=== PATIENT | male | born 1945 | race Caucasian/White ===

== ENCOUNTER 2020-12-02 09:27 | Outpatient (REF) | payer MEDICARE, OTHER, SELFPAY | END 2020-12-02 09:28 | disposition home or self-care (01) | LOC: HO.MDS 09:27 | PROVIDERS: PCP Internal Medicine; Visit Provider Psychiatry & Neurology Neurology | DX: G61.81 Chronic inflammatory demyelinating polyneuritis (principal) | CPT/HCPCS: 96365; 96366; J1572 ==

== ENCOUNTER 2020-12-03 08:45 | Outpatient (REF) | payer MEDICARE, OTHER, SELFPAY | END 2020-12-03 08:46 | disposition home or self-care (01) | LOC: HO.MDS 08:45 | PROVIDERS: PCP Internal Medicine; Visit Provider Psychiatry & Neurology Neurology | DX: G61.81 Chronic inflammatory demyelinating polyneuritis (principal) | CPT/HCPCS: 96365; 96366; J1572 ==

== ENCOUNTER 2020-12-04 08:45 | Outpatient (REF) | payer MEDICARE, OTHER, SELFPAY | END 2020-12-04 08:46 | disposition home or self-care (01) | LOC: HO.MDS 08:45 | PROVIDERS: PCP Internal Medicine; Visit Provider Psychiatry & Neurology Neurology | DX: G61.81 Chronic inflammatory demyelinating polyneuritis (principal) | CPT/HCPCS: 96365; 96366; J1572 ==

== ENCOUNTER 2020-12-05 08:54 | Outpatient (REF) | payer MEDICARE, OTHER, SELFPAY | END 2020-12-05 08:55 | disposition home or self-care (01) | LOC: HO.MDS 08:54 | PROVIDERS: PCP Internal Medicine; Visit Provider Psychiatry & Neurology Neurology | DX: G61.81 Chronic inflammatory demyelinating polyneuritis (principal) | CPT/HCPCS: 96365; 96366; J1572 ==

== ENCOUNTER 2020-12-06 08:38 | Outpatient (REF) | payer MEDICARE, OTHER, SELFPAY | END 2020-12-06 08:39 | disposition home or self-care (01) | LOC: HO.MDS 08:38 | PROVIDERS: Visit Provider Psychiatry & Neurology Neurology | DX: G61.81 Chronic inflammatory demyelinating polyneuritis (principal) | CPT/HCPCS: 96365; 96366; J1572 ==

== ENCOUNTER 2021-06-09 09:07 | Outpatient (REF) | payer MEDICARE, OTHER, SELFPAY | END 2021-06-09 09:08 | disposition home or self-care (01) | LOC: HO.MDS 09:07 | PROVIDERS: PCP Internal Medicine; Visit Provider Psychiatry & Neurology Neurology | DX: G61.81 Chronic inflammatory demyelinating polyneuritis (principal) | CPT/HCPCS: 96365; 96366; J1572 ==

== ENCOUNTER 2021-06-10 08:57 | Outpatient (REF) | payer MEDICARE, OTHER, SELFPAY | END 2021-06-10 08:58 | disposition home or self-care (01) | LOC: HO.MDS 08:57 | PROVIDERS: PCP Internal Medicine; Visit Provider Psychiatry & Neurology Neurology | DX: G61.81 Chronic inflammatory demyelinating polyneuritis (principal) | CPT/HCPCS: 96365; 96366; J1572 ==

== ENCOUNTER 2021-06-11 08:54 | Outpatient (REF) | payer MEDICARE, OTHER, SELFPAY | END 2021-06-11 08:55 | disposition home or self-care (01) | LOC: HO.MDS 08:54 | PROVIDERS: PCP Internal Medicine; Visit Provider Psychiatry & Neurology Neurology | DX: G61.81 Chronic inflammatory demyelinating polyneuritis (principal) | CPT/HCPCS: 96365; 96366; J1572 ==

== ENCOUNTER 2021-06-12 08:52 | Outpatient (REF) | payer MEDICARE, OTHER, SELFPAY | END 2021-06-12 08:53 | disposition home or self-care (01) | LOC: HO.MDS 08:52 | PROVIDERS: PCP Internal Medicine; Visit Provider Psychiatry & Neurology Neurology | DX: G61.81 Chronic inflammatory demyelinating polyneuritis (principal) | CPT/HCPCS: 96365; 96366; J1572 ==

== ENCOUNTER 2021-06-13 08:55 | Outpatient (REF) | payer MEDICARE, OTHER, SELFPAY | END 2021-06-13 08:56 | disposition home or self-care (01) | LOC: HO.MDS 08:55 | PROVIDERS: PCP Internal Medicine; Visit Provider Psychiatry & Neurology Neurology | DX: G61.81 Chronic inflammatory demyelinating polyneuritis (principal) | CPT/HCPCS: 96365; 96366; J1572 ==

== ENCOUNTER 2021-12-08 08:44 | Outpatient (REF) | payer MEDICARE, OTHER, SELFPAY | END 2021-12-08 08:45 | disposition home or self-care (01) | LOC: HO.MDS 08:44 | PROVIDERS: PCP Internal Medicine; Visit Provider Psychiatry & Neurology Neurology | DX: G61.81 Chronic inflammatory demyelinating polyneuritis (principal) | CPT/HCPCS: 96365; 96366; J1569; J1572 ==

== ENCOUNTER 2021-12-09 08:46 | Outpatient (REF) | payer MEDICARE, OTHER, SELFPAY | END 2021-12-09 08:47 | disposition home or self-care (01) | LOC: HO.MDS 08:46 | PROVIDERS: PCP Internal Medicine; Visit Provider Psychiatry & Neurology Neurology | DX: G61.81 Chronic inflammatory demyelinating polyneuritis (principal) | CPT/HCPCS: 96365; 96366; J1569 ==

== ENCOUNTER 2021-12-10 08:48 | Outpatient (REF) | payer MEDICARE, OTHER, SELFPAY | END 2021-12-10 08:49 | disposition home or self-care (01) | LOC: HO.MDS 08:48 | PROVIDERS: PCP Internal Medicine; Visit Provider Psychiatry & Neurology Neurology | DX: G61.81 Chronic inflammatory demyelinating polyneuritis (principal) | CPT/HCPCS: 96365; 96366; J1569 ==

== ENCOUNTER 2021-12-11 08:44 | Outpatient (REF) | payer MEDICARE, OTHER, SELFPAY | END 2021-12-11 08:45 | disposition home or self-care (01) | LOC: HO.MDS 08:44 | PROVIDERS: PCP Internal Medicine; Visit Provider Psychiatry & Neurology Neurology | DX: G61.81 Chronic inflammatory demyelinating polyneuritis (principal) | CPT/HCPCS: 96365; 96366; J1569 ==

== ENCOUNTER 2021-12-12 08:46 | Outpatient (REF) | payer MEDICARE, OTHER, SELFPAY | END 2021-12-12 08:47 | disposition home or self-care (01) | LOC: HO.MDS 08:46 | PROVIDERS: PCP Internal Medicine; Visit Provider Psychiatry & Neurology Neurology | DX: G61.81 Chronic inflammatory demyelinating polyneuritis (principal) | CPT/HCPCS: 96365; 96366; J1569 ==

== ENCOUNTER 2022-06-01 09:02 | Outpatient (REF) | payer MEDICARE, OTHER, SELFPAY | END 2022-06-01 09:03 | disposition home or self-care (01) | LOC: HO.MDS 09:02 | PROVIDERS: PCP Physician Assistant Medical; Visit Provider Psychiatry & Neurology Neurology | DX: G61.81 Chronic inflammatory demyelinating polyneuritis (principal) | CPT/HCPCS: 96365; 96366; J1569 ==

== ENCOUNTER 2022-06-02 08:51 | Outpatient (REF) | payer MEDICARE, OTHER, SELFPAY | END 2022-06-02 08:52 | disposition home or self-care (01) | LOC: HO.MDS 08:51 | PROVIDERS: PCP Physician Assistant Medical; Visit Provider Psychiatry & Neurology Neurology | DX: G61.81 Chronic inflammatory demyelinating polyneuritis (principal) | CPT/HCPCS: 96365; 96366; J1569 ==

== ENCOUNTER 2022-06-03 08:50 | Outpatient (REF) | payer MEDICARE, OTHER, SELFPAY | END 2022-06-03 08:51 | disposition home or self-care (01) | LOC: HO.MDS 08:50 | PROVIDERS: PCP Physician Assistant Medical; Visit Provider Psychiatry & Neurology Neurology | DX: G61.81 Chronic inflammatory demyelinating polyneuritis (principal) | CPT/HCPCS: 96365; 96366; J1569 ==

== ENCOUNTER 2022-06-05 08:45 | Outpatient (REF) | payer MEDICARE, OTHER, SELFPAY | END 2022-06-05 08:46 | disposition home or self-care (01) | LOC: HO.MDS 08:45 | PROVIDERS: PCP Physician Assistant Medical; Visit Provider Psychiatry & Neurology Neurology | DX: G61.81 Chronic inflammatory demyelinating polyneuritis (principal) | CPT/HCPCS: 96365; 96366; J1569 ==

== ENCOUNTER 2022-06-15 09:50 | Outpatient (REF) | payer MEDICARE, OTHER, SELFPAY | END 2022-06-15 09:51 | disposition home or self-care (01) | LOC: HO.MDS 09:50 | PROVIDERS: PCP Physician Assistant Medical; Visit Provider Psychiatry & Neurology Neurology | DX: G61.81 Chronic inflammatory demyelinating polyneuritis (principal) | CPT/HCPCS: 96365; 96366; J1569 ==

== ENCOUNTER 2022-12-14 08:49 | Outpatient (REF) | payer MEDICARE, OTHER, SELFPAY | END 2022-12-14 08:50 | disposition home or self-care (01) | LOC: HO.MDS 08:49 | PROVIDERS: Visit Provider Psychiatry & Neurology Neurology | DX: G61.81 Chronic inflammatory demyelinating polyneuritis (principal) | CPT/HCPCS: 96365; 96366; J1569 ==

== ENCOUNTER 2022-12-15 08:41 | Outpatient (REF) | payer MEDICARE, OTHER, SELFPAY | END 2022-12-15 08:42 | disposition home or self-care (01) | LOC: HO.MDS 08:41 | PROVIDERS: Visit Provider Psychiatry & Neurology Neurology | DX: G61.81 Chronic inflammatory demyelinating polyneuritis (principal) | CPT/HCPCS: 96365; 96366; J1569 ==

== ENCOUNTER 2022-12-16 08:36 | Outpatient (REF) | payer MEDICARE, OTHER, SELFPAY | END 2022-12-16 08:37 | disposition home or self-care (01) | LOC: HO.MDS 08:36 | PROVIDERS: Visit Provider Psychiatry & Neurology Neurology | DX: G61.81 Chronic inflammatory demyelinating polyneuritis (principal) | CPT/HCPCS: 96365; J1569 ==

== ENCOUNTER 2022-12-17 08:39 | Outpatient (REF) | payer MEDICARE, OTHER, SELFPAY | END 2022-12-17 08:40 | disposition home or self-care (01) | LOC: HO.MDS 08:39 | PROVIDERS: Visit Provider Psychiatry & Neurology Neurology | DX: G61.81 Chronic inflammatory demyelinating polyneuritis (principal) | CPT/HCPCS: 96365; 96366; J1569 ==

== ENCOUNTER 2022-12-18 08:44 | Outpatient (REF) | payer MEDICARE, OTHER, SELFPAY | END 2022-12-18 08:45 | disposition home or self-care (01) | LOC: HO.MDS 08:44 | PROVIDERS: Visit Provider Psychiatry & Neurology Neurology | DX: G61.81 Chronic inflammatory demyelinating polyneuritis (principal) | CPT/HCPCS: 96365; 96366; J1569 ==

== ENCOUNTER 2023-06-14 08:58 | Outpatient (REF) | payer MEDICARE, OTHER, SELFPAY | END 2023-06-14 08:59 | disposition home or self-care (01) | LOC: HO.MDS 08:58 | PROVIDERS: Visit Provider Psychiatry & Neurology Neurology | DX: G61.81 Chronic inflammatory demyelinating polyneuritis (principal) | CPT/HCPCS: 96365; 96366; J1569 ==

== ENCOUNTER 2023-06-15 08:43 | Outpatient (REF) | payer MEDICARE, OTHER, SELFPAY | END 2023-06-15 08:44 | disposition home or self-care (01) | LOC: HO.MDS 08:43 | PROVIDERS: Visit Provider Psychiatry & Neurology Neurology | DX: G61.81 Chronic inflammatory demyelinating polyneuritis (principal) | CPT/HCPCS: 96365; 96366; J1569 ==

== ENCOUNTER 2023-06-16 08:46 | Outpatient (REF) | payer MEDICARE, OTHER, SELFPAY | END 2023-06-16 08:47 | disposition home or self-care (01) | LOC: HO.MDS 08:46 | PROVIDERS: Visit Provider Psychiatry & Neurology Neurology | DX: G61.81 Chronic inflammatory demyelinating polyneuritis (principal) | CPT/HCPCS: 96365; 96366; J1569 ==

== ENCOUNTER 2023-06-17 08:45 | Outpatient (REF) | payer MEDICARE, OTHER, SELFPAY | END 2023-06-17 08:46 | disposition home or self-care (01) | LOC: HO.MDS 08:45 | PROVIDERS: Visit Provider Psychiatry & Neurology Neurology | DX: G61.81 Chronic inflammatory demyelinating polyneuritis (principal) | CPT/HCPCS: 96365; 96366; J1569 ==

== ENCOUNTER 2023-06-18 08:47 | Outpatient (REF) | payer MEDICARE, OTHER, SELFPAY | END 2023-06-18 08:48 | disposition home or self-care (01) | LOC: HO.MDS 08:47 | PROVIDERS: Visit Provider Psychiatry & Neurology Neurology | DX: G61.81 Chronic inflammatory demyelinating polyneuritis (principal) | CPT/HCPCS: 96365; 96366; J1569 ==

== ENCOUNTER 2023-11-01 08:57 | Outpatient (REF) | payer MEDICARE, OTHER, SELFPAY | END 2023-11-01 08:58 | disposition home or self-care (01) | LOC: HO.MDS 08:57 | PROVIDERS: Visit Provider Psychiatry & Neurology Neurology | DX: G61.81 Chronic inflammatory demyelinating polyneuritis (principal) | CPT/HCPCS: 96365; 96366; J1569 ==

== ENCOUNTER 2023-11-02 08:56 | Outpatient (REF) | payer MEDICARE, OTHER, SELFPAY | END 2023-11-02 08:57 | disposition home or self-care (01) | LOC: HO.MDS 08:56 | PROVIDERS: PCP Physician Assistant Medical; Visit Provider Psychiatry & Neurology Neurology | DX: G61.81 Chronic inflammatory demyelinating polyneuritis (principal) | CPT/HCPCS: 96365; 96366; J1569 ==

== ENCOUNTER 2023-11-03 08:44 | Outpatient (REF) | payer MEDICARE, OTHER, SELFPAY | END 2023-11-03 08:45 | disposition home or self-care (01) | LOC: HO.MDS 08:44 | PROVIDERS: Visit Provider Psychiatry & Neurology Neurology | DX: G61.81 Chronic inflammatory demyelinating polyneuritis (principal) | CPT/HCPCS: 96365; 96366; J1569 ==

== ENCOUNTER 2023-11-04 08:47 | Outpatient (REF) | payer MEDICARE, OTHER, SELFPAY | END 2023-11-04 08:48 | disposition home or self-care (01) | LOC: HO.MDS 08:47 | PROVIDERS: Visit Provider Psychiatry & Neurology Neurology | DX: G61.81 Chronic inflammatory demyelinating polyneuritis (principal) | CPT/HCPCS: 96365; 96366; J1569 ==

== ENCOUNTER 2023-11-05 08:47 | Outpatient (REF) | payer MEDICARE, OTHER, SELFPAY | END 2023-11-05 08:48 | disposition home or self-care (01) | LOC: HO.MDS 08:47 | PROVIDERS: PCP Physician Assistant Medical; Visit Provider Psychiatry & Neurology Neurology | DX: G61.81 Chronic inflammatory demyelinating polyneuritis (principal) | CPT/HCPCS: 96365; 96366; J1569 ==

== ENCOUNTER 2024-01-31 08:54 | Outpatient (REF) | payer MEDICARE, OTHER, SELFPAY ==
[2024-01-31] VITALS (8 sets, daily range): BP systolic 96–117; BP diastolic 48–64; PULSE 55–69; RESP 18–118; TEMP 36.8; O2SAT 96; BMI 32.6
[2024-01-31] MEDS: Immun Glob G(IgG)/Gly/IGA Ov50 200 ML IV ×2 (09:30→11:00)
== END 2024-01-31 08:55 | disposition home or self-care (01) ==
LOC: HO.MDS 08:54
PROVIDERS: Visit Provider Psychiatry & Neurology Neurology
DX: G61.81 Chronic inflammatory demyelinating polyneuritis (principal)
CPT/HCPCS: 96365; 96366; J1569

== ENCOUNTER 2024-02-01 08:46 | Outpatient (REF) | payer MEDICARE, OTHER, SELFPAY ==
[2024-02-01] VITALS (8 sets, daily range): BP systolic 116–134; BP diastolic 62–77; PULSE 57–66; RESP 16–18; TEMP 36; O2SAT 96–97
[2024-02-01] MEDS: Immun Glob G(IgG)/Gly/IGA Ov50 200 ML IV ×2 (09:26→10:56)
== END 2024-02-01 08:47 | disposition home or self-care (01) ==
LOC: HO.MDS 08:46
PROVIDERS: Visit Provider Psychiatry & Neurology Neurology
DX: G61.81 Chronic inflammatory demyelinating polyneuritis (principal)
CPT/HCPCS: 96365; 96366; J1569

== ENCOUNTER 2024-02-02 08:41 | Outpatient (REF) | payer MEDICARE, OTHER, SELFPAY ==
[2024-02-02] VITALS (8 sets, daily range): BP systolic 107–144; BP diastolic 54–75; PULSE 59–72; RESP 16–20; TEMP 36.5; O2SAT 98
[2024-02-02] MEDS: Immun Glob G(IgG)/Gly/IGA Ov50 200 ML IV ×2 (09:00→10:30)
== END 2024-02-02 08:42 | disposition home or self-care (01) ==
LOC: HO.MDS 08:41
PROVIDERS: Visit Provider Psychiatry & Neurology Neurology
DX: G61.81 Chronic inflammatory demyelinating polyneuritis (principal)
CPT/HCPCS: 96365; 96366; J1569

== ENCOUNTER 2024-02-03 08:32 | Outpatient (REF) | payer MEDICARE, OTHER, SELFPAY ==
[2024-02-03] VITALS (8 sets, daily range): BP systolic 120–141; BP diastolic 54–74; PULSE 54–67; RESP 20; TEMP 36.6; O2SAT 96
[2024-02-03] MEDS: Immun Glob G(IgG)/Gly/IGA Ov50 200 ML IV ×2 (09:00→10:27)
== END 2024-02-03 08:33 | disposition home or self-care (01) ==
LOC: HO.MDS 08:32
PROVIDERS: Visit Provider Psychiatry & Neurology Neurology
DX: G61.81 Chronic inflammatory demyelinating polyneuritis (principal)
CPT/HCPCS: 96365; 96366; J1569

== ENCOUNTER 2024-02-04 08:37 | Outpatient (REF) | payer MEDICARE, OTHER, SELFPAY ==
[2024-02-04] VITALS (8 sets, daily range): BP systolic 120–151; BP diastolic 64–78; PULSE 55–66; RESP 16–20; TEMP 36.6; O2SAT 96
[2024-02-04] MEDS: Immun Glob G(IgG)/Gly/IGA Ov50 200 ML IV ×2 (08:50→10:15)
== END 2024-02-04 08:38 | disposition home or self-care (01) ==
LOC: HO.MDS 08:37
PROVIDERS: Visit Provider Psychiatry & Neurology Neurology
DX: G61.81 Chronic inflammatory demyelinating polyneuritis (principal)
CPT/HCPCS: 96365; 96366; J1569

== ENCOUNTER 2025-07-18 11:25 | Outpatient (AMB) | payer MEDICARE, OTHER, SELFPAY ==
--- NOTE | 2025-07-18 11:39 | A.OFFVIS_ITS ---
Intake Visit Reasons: 3 Months/ CIDP Allergies No Known Allergies (No Known Allergies*) Allergy (Unverified 08/08/20 19:11) HPI Comments Details: 79 y/o man with h/o aortic valve replacement and chronic inflammotory demylinating polyradiculoneuropathy, and RLS. CIDP is treated with prednisone and ivIg every 3 months. He got worse with prednisone 2.5mg and was stable on higher dose. He is presenting with worsening leg weakness characterized by a decrease in leg strength, affecting balance and mobility over the past two to three months. There is noted nocturnal swelling of the left leg associated with brace wear, resolving by morning. The patient has been on a maintenance dose of 7.5 mg prednisone since April due to past unsuccessful tapering attempts that exacerbated his leg weakness, significantly impacting his walking ability. Prednisone dose reductions to 5 mg and 2.5 mg in the past led to severe mobility issues. IVIG treatments generally contribute to mild improvement in ambulation; however, the last treatment did not afford the usual benefit. The patient also experiences difficulty ambulating due to a disintegrating bone in the left foot, further complicating the clinical picture. 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 - Cardiovascular: Denies significant lower extremity swelling during the day; minimal swelling noted at night, which resolves by morning. - General: Reports no significant improvement despite recent IVIG treatment. Assessment & Plan Assessment & Plan (1) CIDP (chronic inflammatory demyelinating polyneuropathy): Comment: CSF analysis at [facility] in Nov 2016: OP: 6.5cm, RBCs 9275, WBCs 9, 46% L, 42% N, Glu 48, Pro 129.3, IgG ind: ok, OCBs >5 bands also in serum but some are more pronounced in CSF Labs at [facility] in Sep 2016: LORI ok, Lyme ok, IF ok, Sed rate 60. 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 XR ankle at in Jul 2016: mild DJD MRI LS spine at [facility] in Nov 2016: mod DJD, mod anterolisthesis S1/L5. Code(s): G6.81 - Chronic inflammatory demyelinating polyneuritis Category: Medical Plan: During today's consultation, I discussed the progression of the patient's leg weakness, emphasizing maintaining the current prednisone regimen due to previous adverse reactions to dose reductions. I explored future treatment options, including biological drugs like Rituximab, Vyvgart, and alternatives depending on subsequent nerve conduction study results. Addressing IVIG as a current supportive treatment modality was also emphasized, despite its limited efficacy in this recent session. We also reviewed the implications of the disintegrating foot bone on mobility and potential adjustments to the brace or need for further podiatric interventions. I discussed the importance of scheduling nerve tests and the potential for new medication regimens contingent on results and insurance considerations. (2) RLS (restless legs syndrome): Code(s): G2.81 - Restless legs syndrome Category: Medical Plan Impression: a: CIDP b: Multifactorial gait disorder (neuropathy, obesity, left foot osteopathy) c: RLS Rec: a: Prednisone 2.5mg, 3 a day b: IVIg 40g for 5 days every 3 months c: EMG/NCS R arm and leg to grade present level of neuropathy d: Regular use of walker e: May consider biological drug depending EMG/NCS findings Orders: Orders NE nerve conduction velocity Today - Chronic inflammatory demyelinating polyneuritis NE electromyogram (EMG) Today - Chronic inflammatory demyelinating polyneuritis Medications: New prednisone 7.5 mg (3 x 2.5 mg) PO DAILY 270 tabs 0RF 90 days Refilled gabapentin 300 mg PO BEDTIME 90 caps 0RF Coding Level of Care Code Est Pt Level 5 (92243) Diagnoses CIDP (chronic inflammatory demyelinating polyneuropathy) RLS (restless legs syndrome)
--- OUTSIDE RECORDS SUMMARY | 2025-07-18 12:22 | XMS_ITS | Patient Health Record ---
[facility] Address [address] [place] [address] Care Team Providers Care Radio Recorder Name Role Phone Rj Benitez MD Primary Care Provider Anca Garcia Unavailable [phone] Reason For Referral No Information Medications Medication SIG (Take, Route, Frequency, Duration) Notes Start Date End Date Status Viagra 100 MG 1 tablet as needed O rally Once a day; Duration: 30 day(s) Active Indomethacin 25 MG 1 capsule with food Orally Twice a day; Duration: 30 day(s) Active Lisinopril 40 MG 1 tablet Orally Once a day; Duration: 30 day(s) Active amLODIPine Besylate 5 MG 1 tablet Orally Once a day; Duration: 30 day(s) Active Pravastatin Sodium 80 MG 1 tablet Orally Once a day; Duration: 30 day(s) Active Aspirin 81 MG 1 tablet Orally Once a day; Duration: 30 day(s) Active Piroxicam 20 MG 1 capsule with food Orally Once a day; Duration: 30 day(s) Active Ankle Brace/High Performance S as directed 06/27/2013 Active Problems Problem Type SNOMED Code ICD Code Onset Dates Problem Status W/U Status Risk Notes Problem Arthralgia (16999051) Arthralgia (719.40) Active confirmed Problem Disorder of joint of ankle and/or foot (299006229) Arthritis - Degenerative (719.97) Active confirmed Problem Pain in limb (52969545) Pain in Limb (729.5) Active confirmed Problem Acquired deformity of ankle AND/OR foot (97347920) Drop foot (736.79) Active confirmed Plan Of Treatment Pending Test Test Name Order Date [id number] NAIL, 1-08/29/2013 [id number] NAIL, -11/28/2013 Insurance Providers Payer Name Payer Address Payer Phone Subscriber Number Group Number Insured Name Patient Relationship to Insured Coverage Start Date Coverage End Date [address] [place] [address] [id number] Joshua Mackey Self - patient is the insured Medical (General) History Medical History History ICD Code hypertension
--- OUTSIDE RECORDS SUMMARY | 2025-07-18 12:22 | XMS_ITS | Clinical Summary ---
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 Active hydrocortisone 2.5 % ointment 10/26/20 23 Active amoxicillin (AMOXIL) 500 mg capsule TAKE 4 CAPSULES BY MOUTH 1 HOUR BEFORE DENTAL APPOINTMENT 10/18/20 23 Active traMADoL (ULTRAM) 50 mg tablet Take 1 Tablet by mouth every 6 hours as needed for Pain. 11/17/20 23 Active triamcinolone (KENALOG) 0.1 % lotion Apply to affected areas twice daily as needed sparingly 11/17/20 23 Active latanoprost (XALATAN) 0.005 % ophthalmic solution INSTILL 1 DROP IN BOTH EYES AT BEDTIME 02/27/20 23 Active CHOLECALCIFEROL, VITAMIN D3, ORAL Take 500 mg by mouth daily. Active calcium carbonate (CALCIUM 600 ORAL) Take 600 mg by mouth daily. Active sildenafiL (VIAGRA) 100 mg tablet 01/09/20 19 Active gabapentin (NEURONTIN) 300 mg capsule Take 300 mg by mouth daily. Active omeprazole (PriLOSEC) [address] capsule TAKE 1 CAPSULE BY MOUTH DAILY 90 capsule 3 10/25/20 24 Active pravastatin (PRAVACHOL) 80 mg tablet TAKE 1 TABLET BY MOUTH DAILY 90 tablet 3 12/06/19 25 Active warfarin (COUMADIN) 5 mg tablet TAKE 1 TO 2 TABLETS BY MOUTH EVERY DAY 180 tablet 1 12/22/19 25 Active Additional Information Patient taking differently:oral Daily,5 days 5 mg and 7.5mg 2 other days, Reported on 06/18/2025 Arexvy, PF, 120 mcg/0.5 mL suspension for reconstitution 09/19/20 24 Active predniSONE (DELTASONE) 5 mg tablet Take 1 tablet (5 mg total) by mouth 1 (one) time each day. Total 7.5mg 12/23/19 25 Active predniSONE (DELTASONE) 2.5 mg tablet Take 1 tablet (2.5 mg total) by mouth 1 (one) time each day. Total 7.5mg daily 12/25/19 25 Active ferrous sulfate 325 mg (65 mg iron) EC tablet Take 1 tablet (325 mg total) by mouth 1 (one) time each day with breakfast. Do not crush, chew, or split. 02/24/20 25 Active sacubitriL-valsart an (ENTRESTO) 24-26 mg per tablet Take 1 tablet by mouth 2 (two) times a day. 180 each 3 04/04/20 25 026 Active carvediloL (COREG) 12.5 mg tablet Take 1 tablet (12.5 mg total) by mouth 2 (two) times a day with meals. 180 each 3 05/15/20 25 Active polyethylene glycol (Golytely) 236-22.74-6.74 -5.86 gram solution Take 4L by mouth once for one dose. May substitue any PEG. Starting at 2PM the day before your procedure drink 1 8oz glasses at your own pace until you complete half of the gallon. Finish 2nd half of the gallon at 8PM. 4000 mL 06/18/20 25 Active bisacodyL (DULCOLAX) 5 mg EC tablet Take 2 tablets by mouth right before beginning bowel prep. See instructions provided by the office 2 tablet 06/18/20 25 Active docusate sodium (COLACE) 100 mg capsule Take 1 capsule (100 mg total) by mouth 2 (two) times a day. Active betamethasone dipropionate (DIPROSONE) 0.05 % cream 04/04/20 25 Active immune globulin,gamma,IgG , (IMMUNE GLOBULIN, HUMAN,, IGG, IV) Infuse into a venous catheter every 3 (three) months. Active Active Problems Problem Noted Date Diagnosed Date Cardiomyopathy, nonischemic ([facility] V24, [facility]/ C V28) 04/04/2025 half-way (current) use of anticoagulants 2023 Personal history of DVT (deep vein thrombosis) 1 12/13/2023 Anemia 08/29/2024 Carpal tunnel syndrome on right 05/29/2024 Left carpal tunnel syndrome 05/29/2024 Edema of both lower extremit ies due to peripheral venous insufficiency 03/20/2024 Overview (08/29/2024): Last Assessment & Plan: Centrally euvolemic with dependent edema-likely related to multiple factors including venous insufficiency, chronic dependent state of his legs, peripheral muscle wasting. Recommended elevation of legs while supine is much as possible. I did offer to start him on an as needed diuretic. He would like to hold off but will let me know if things start to worsen. OAB (overactive bladder) 11/17/2023 Basal cell carcinoma (BCC) of neck 05/07/2023 Iron deficiency anemia due to chronic blood loss 12/25/2021 MR (mitral regurgitation) 06/06/2018 Overview (08/29/2024): -Unfortunately I am unable to view the echocardiographic images of his previous to echocardiograms but I description, it is noted that he was described as having moderate to severe mitral regurgitation on his echo in 2018 which subsequently improved to mild to moderate in 2019 -In the past several years, it has been moderate and eccentric-see most recent echo under aortic stenosis section Last Assessment & Plan: No more than moderate by exam today. Continue yearly surveillance echoes. mainly for this purpose DVT (deep venous thrombosis) ([facility] V24, [facility]/ [facility] V28) 09/28/2017 Left foot drop 02/10/2017 CIDP (chronic inflammatory d emyelinating polyneuropathy) ([facility] V24, [facility] V28) 01/30/2017 Overview (08/29/2024): receiving IVIG from under Dr. Macias Aortic stenosis 12/23/2012 Overview (08/29/2024): -Status post bioprosthetic aortic valve replacement for severe aortic stenosis that was symptomatic in nature in March 2016 -Preoperative cardiac cath showed minor luminal irregularities of the coronaries -Most recent echocardiogram on 01/21/2024 showed upper normal left ventricular cavity size and upper normal wall thickness, low normal systolic function with normal regional wall motion and an ejection fraction of 50 to 55%, paradoxic septal motion in keeping with prior cardiac surgery, grade 2 diastolic dysfunction consistent with increased left atrial pressure, evidence of increased LVEDP, normal RV size and systolic function, bioprosthetic aortic valve replacement-valve is well-seated with physiologic performance and no AI, mildly thickened and apically tented mitral valve leaflets with poor leaflet tip coaptation with moderate, posteriorly directed mitral regurgitation, at least moderate pulmonary hypertension-unchanged from January 2023 Last Assessment & Plan: Will update echocardiogram again next year, valve sounds very good today. No evidence of decompensated heart failure or central congestion. Spondylolisthesis, grade 3 12/09/2010 Spinal stenosis, lumbar 12/09/2010 Spinal stenosis of thoracic region 12/09/2010 Herniated thoracic disc without myelopathy 12/09 Hypertrophy of prostate without urinary obstruct ion 05/07/2009 Obesity 01/24/2008 Hyperlipemia 10/26/2005 Overview (08/29/2024): Last Assessment & Plan: Continue pravastatin 80 mg daily. Hypertension 10/26/2005 Overview (08/29/2024): Last Assessment & Plan: Given that blood pressures recently have been so well-controlled at home even though today's blood pressure was slightly elevated, we are going to attempt a trial of cutting amlodipine 2.5 mg. This is mainly because it is such a low dose and with the hopes that it will help with the lower extremity edema that he is experiencing. However, I asked him to continue checking his blood pressures at home to make sure that they stay within the normal range. His pulse rates have actually been quite good even during IVIG infusions. Therefore we are continuing carvedilol at 12.5 twice daily. 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 (Primary Dx); Personal history of DVT (deep vein thrombosis) 06/25/2025 2:53 PM EDT Anesthesia Event [facility] [address] [place] [id number] Beau Vuong DO 06/25/2025 1:35 PM EDT - 06/25/2025 11:59 PM EDT Hospital Encounter [facility] [address] [place] [address] Jacqueline Patel DO Couture, Alison, CRNA Korobkov, Vitaliy, DO Positive colorectal cancer screening using Cologuard test Discharge Disposition: Home or Self Care 06/18/2025 Telephone [facility]astro[facility]ology - [place] [address] [facility] [address] [phone] Jacqueline Patel DO 06/11/2025 Telephone [facility] - [place] [address] [phone] Fernanda Esparza LPN 06/11/2025 Telephone [facility] - [place] [address] [phone] Stephanie Mayers MD 06/01/2025 11:00 AM EDT Anticoagulation - Warfarin Visit Coumadin [facility] - [address] [phone] 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 (Primary Dx); Personal history of DVT (deep vein thrombosis) 05/15/2025 2:40 PM EDT Office Visit [facility]ology - [place] [address] [phone] Beckie Tan NP Positive colorectal cancer screening using Cologuard test (Primary Dx); Hematochezia; Constipation, unspecified constipation type 05/04/2025 11:00 AM EDT Anticoagulation - Warfarin Visit Coumadin [address] [phone] 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 (Primary Dx); Personal history of DVT (deep vein thrombosis) from Last 3 Months Immunizations Name Administration Dates Next Due Influenza Quadravalent, MDCK , 0.5ml, with preservative (Flucelvax) 6mo and older 08/16/2023,08/08/2021 Influenza trivalent, 0.5mL ( Fluzone High-dose) 65yo and older 09/09/2022,08/19/2020,09/05/2018,09/16,07/31/2015 Influenza trivalent, with pr eservative (Fluzone; Afluria) 6mo and older 11/06/2016,11/06/2014,08/30/2013,11/03,08/26/2010,10/29/2009,10/08/2008 Moderna SARS-CoV-2 COVID-19, mRNA, LNP-S, preservative free 08/27/2023,11/27/2021 Pneumococcal conjugate 13 va lent (Prevnar 13, PCV13) 2mo and older 05/09/2015 Pneumococcal polysaccharide 23 valent (Pneumovax 23) 2yo and older 12/06/2012 SARS-COV-2 (COVID-19) Vaccin e, Unspecified 08/24/2022 Td Tetanus diptheria (Tdvax) 7yo and older 01/09/2019 Tdap Tetanus diptheria acell ular pertussis (Boostrix; Adacel) 7yo and older 10/08/2008 Zoster Live 04/26/2012 Zoster recombinant (Shingrix ) 19yo and older 09/09/2020,07/11/2020 Surgical History Surgery Date Site/Laterality Comments TONSILLECTOMY PROCEDURE: HISTORICAL TONSILLECTOMY TURP / TRANSURETHRAL INCISIO N / DRAINAGE PROSTATE PROCEDURE: HISTORICAL TURP; COMMENT: 2009 CIRCUMCISION, PRIMARY PROCEDURE: HISTORICAL CIRCUMCISION BACK SURGERY 2014 PROCEDURE: HISTORICAL BACK SURGERY AORTIC VALVE REPLACEMENT 2016 PROCEDURE: HISTORICAL AORTIC VALVE REPL; COMMENT: tissue valve Medical History Medical History Date Comments Undiagnosed cardiac murmurs 04/22/2010 DX:U ndiagnosed cardiac murmurs Spondylolisthesis, grade 3 12/09/2010 DX:Sp ondylolisthesis, grade 3 Spinal stenosis, lumbar 12/09/2010 DX:Spina l stenosis, lumbar Spinal stenosis of thoracic region 12/09/2010 DX:Spinal stenosis of thoracic region Right bundle branch block 10/26/2005 DX:Rig ht bundle branch block Obesity 01/24/2008 DX:Obesity Hypertension 10/26/2005 DX:Hypertension Hyperlipemia 10/26/2005 DX:Hyperlipemia Herniated thoracic disc with out myelopathy 12/09/2010 DX:Herniated thoracic disc w ithout myelopathy Impotence of organic origin 10/26/2005 DX:I mpotence of organic origin Hypertrophy of prostate with out urinary obstruction and other lower urinary tract symptoms (LUTS) 05/07/2009 DX:Hypertrophy of prosta te without urinary obstruction and other lower urinary tract symptoms (LUTS) Aortic stenosis 12/23/2012 DX:Aortic stenos is; COMMENT: Moderate by echocardiogram 2012 and November 2013 H/O aortic valve replacement 05/04/2016 DX: H/O aortic valve replacement Anemia DX:Anemia CIDP (chronic inflammatory demyelinating polyneuropathy) ([facility] V24, [facility] V28) Foot drop, left foot Family History Medical History Relation Name Comments Other Dermatological Disorders Brother Specifics unknown Relation Name Status Comments Brother (Age 74) prostate c ancer from heart Father (Age 74) oldage Mother (Age 84) old age Social History Tobacco Use Types Packs/Day Years Used Date Smoking Tobacco: Former Smokeless Tobacco: Never Tobacco Cessation:Counseling Given: Not Answered Alcohol Use Standard Drinks/Week Comments Not Currently 0 (1 standard drink = 0.6 oz pur e alcohol) Housing Instability Answer Date Recorde d Are you worried that in the next 2 months you may not have stable housing? No 02/20/2025 Food Access & Nutrition Answer Date Rec orded Do you have access to a vari ety of food including fruits and vegetables? Yes 02/20/2025 Access to Healthcare Answer Date Record ed Within the last 3 months, simon w many times did you visit the emergency department for your medical care? 0 02/20/2025 Health Literacy Answer Date Recorded How often do you need to hav e someone help you when you read instructions, pamphlets, or other written material from your doctor or pharmacy? Never 02/20/2025 Caregiver: How often do you need to have someone help you when you read instructions, pamphlets, or other written material from your doctor or pharmacy? Not on file 02/20/2025 Financial Risk Answer Date Recorded How hard is it for you to pa y for the very basics like food, housing, medical care, and air conditioning / heating? Not very hard 02/20/2025 Transportation Answer Date Recorded Has the lack of transportati on kept you from meetings, work, or from getting things needed for daily living? No Has the lack of transportati on kept you from medical appointments or from getting medications? No 02/20/2025 Social Isolation Answer Date Recorded How often do you feel lonely or isolated from th ose around you? Never 02/20/2025 Food Risk Answer Date Recorded Within the past 12 months we worried whether our food would run out before we got money to buy more. Never true 02/20/2025 Within the past 12 months th e food we bought just didn't last and we didn't have money to get more. Never true 02/20/2025 Dependent Care Answer Date Recorded Do you need help finding or paying for care for your loved ones. For example, early childhood worker or elderly care for an older adult? No 02/20/2025 Education Answer Date Recorded Do you think completing more education or training, like finishing a GED, going to college, or learning a trade, would be helpful for you? No 02/20/2025 Employment and Income Answer Date Recor ded During the last four weeks, have you been actively looking for work? No 02/20/2025 Living Situation Answer Date Recorded What is your living situation? 0 02/20/2025 Interpersonal Safety Answer Date Record ed Physical Abuse 06/25/2025 Verbal Abuse 06/25/2025 Sex and Gender Information Value Date Recorded Sex Assigned at Not on file Legal Sex Male 4:00 PM EST Gender Identity Not on file Sexual Orientation Not on file Obstetrics History Last Filed Vital Signs Vital Sign Reading Time Taken Comments Blood Pressure 135/70 06/25/2025 3:34 PM EDT Pulse 59 06/25/2025 3:34 PM EDT Temperature 36.4 C (97.6 F) 06/25/2025 2:09 PM EDT Respiratory Rate 16 06/25/2025 3:34 PM EDT Oxygen Saturation 97% 06/25/2025 3:34 PM EDT Inhaled Oxygen Concentration - - Weight 98.4 kg (217 lb) 06/25/2025 2:09 PM EDT Height 175.3 cm (5' 9 ) 06/25/2025 2:09 PM EDT Body Mass Index 32.05 06/25/2025 2:09 PM EDT Plan of Treatment Upcoming Encounters Date Type Department Care Team (Latest Contact Info) Description 07/30/2025 11:00 AM EDT Anticoagulation - Warfarin Visit Coumadin [facility] - [address] [phone] 08/29/2025 12:45 PM EDT Office Visit Adult Medicine [address] [phone] Margarito Robbins PA [address] [place] [phone] 09/25/2025 11:00 AM EST Ancillary Procedure [facility] - [address] [place] [address] 10/12/2025 9:10 AM EST Office Visit [facility] - [address] [place] [address] Cheko Matthew NP [address] [place] [address] Dr [address] [place] [address] Health Maintenance Due Date Last Done Comments Colorectal Cancer Screening: Stool Based Tests (FOBT/FIT) 10/31/2022 Medicare Annual Wellness Visit 10/31/2022 COVID-19 Vaccine (7 - Moderna risk season) 2025 08/28/2024, 08/27/2023, 08/24/2022, Additional history exists Influenza Vaccine (#1) 2025 , 08/16/2023, 09/09/2022, Additional history exists Social Influencers of Health Screening 02/20/2026 02/20/2025 Hypertension/CHF/CAD Annual BMP Blood Test 05/04/2026 05/04/2025, 03/09/2025, 08/25/2024, Additional history exists Falls Risk Assessment 06/25/2026 06/25/2025 DTaP,Tdap,and Td Vaccines (3 - Td or Tdap) 01/09/2029 01/09/2019, 10/08/2008 Cholesterol Screening (Lipid Panel) 03/09/2030 03/09/2025, 08/25/2024, 08/25/2024 Hepatitis C Screening Completed 05/08/2014 Pneumococcal Vaccine: 50+ Years Completed 05/09/2015, 12/06/2012 Zoster Vaccines Completed 09/09/2020, 06/23, 04/26/2012 RSV Immunization Adult Patients Completed 09/19/2024 Depression Screening Completed 02/20/2025, 08/25/20 Colorectal Cancer Screening: Colonoscopy Discontinued 06/25/2025 HIB Vaccines Aged Out No longer eligi ble based on patient's age to complete this topic HPV Vaccines Aged Out No longer eligi ble based on patient's age to complete this topic Hepatitis A Vaccines Aged Out No long er eligible based on patient's age to complete this topic Hepatitis B Vaccines Aged Out No long er eligible based on patient's age to complete this topic IPV Vaccines Aged Out No longer eligi ble based on patient's age to complete this topic MMR Vaccines Aged Out No longer eligi ble based on patient's age to complete this topic Meningococcal ACWY Vaccine Aged Out N o longer eligible based on patient's age to complete this topic Meningococcal B Vaccine Aged Out No l onger eligible based on patient's age to complete this topic RSV Immunization Patients Under 20 months Aged Out No longer eligible based on patient's age to complete this topic Varicella Vaccines Aged Out No longer eligible based on patient's age to complete this topic Procedures Procedure Name Priority Date/Time Associated Diagnosis Comments POC PROTIME INR BLOOD Routine 07/02/2025 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 Personal history of DVT (deep vein thrombosis) COLONOSCOPY Routine 06/25/2025 3:13 PM EDT Positive colorectal cancer screening using Cologuard test TISSUE EXAM Routine 06/25/2025 3:08 PM EDT Positive colorectal cancer screening using Cologuard test POC PROTIME INR BLOOD Routine 06/01/2025 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 Personal history of DVT (deep vein thrombosis) BASIC METABOLIC PANEL Routine 05/04/2025 11:07 AM EDT Hypertension, unspecified type POC PROTIME INR BLOOD Routine 05/04/2025 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 Personal history of DVT (deep vein thrombosis) LIPID PANEL WITH REFLEX TO DIRECT LDL Routine 03/09/2025 12:07 PM EDT Screen for colon cancer Other hyperlipidemia Primary hypertension Hypertrophy of prostate without urinary obstruction Aortic valve stenosis, etiology of cardiac valve disease unspecified CIDP (chronic inflammatory demyelinating polyneuropathy) (CMS/[facility] V24, [facility] V28) Deep vein thrombosis (DVT) of non-extremity vein, unspecified chronicity Iron deficiency anemia due to chronic blood loss DEPRESSION SCREENING Routine 08/25/2024 HEPATITIS C SCREENING Routine 05/08/2014 from Last 3 Months or Most Recently Relevant to Health Maintenance Results * POC Protime INR Blood (07/02/2025) Only the most recent of3 resultswithin the time period is included. Lot Number INR POC 2.0 Prothrombin Time POC Exp Date Blood 07/02/2025 Margarito PANDA POINT OF CARE TEST ENTER/ EDIT ORDERABLES Final Result * COLONOSCOPY Anesthesia - MAC; [facility] ENDOSCOPY (06/25/2025 3:13 PM EDT) Anatomical Region Laterality Modality Endoscopy 06/25/2025 2:45 PM EDT Impressions 06/25/2025 3:15 PM EDT - Hemorrhoids found on perianal exam. - One 6 mm polyp in the ascending colon, removed with a cold snare. Resected and retrieved. - The examination was otherwise normal on direct and retroflexion views. Recommendation: - Discharge patient to home. - High fiber diet. - Continue present medications. - Await pathology results. - Repeat colonoscopy for surveillance based on pathology results. Narrative 06/25/2025 3:15 PM EDT [facility] GI Patient Name: Joshua Kirby Procedure Date: 06/25/2025 2:45 PM Date of : 1945 Age: 79 Gender: Male Note Status: Finalized Attending MD: Jacqueline Patel DO, [id number] Procedure Date No Time: 06/25/2025 Procedure: Colonoscopy Indications: Positive Cologuard test Providers: Jacqueline Patel DO Referring MD: Margarito Robbins PA-C Medicines: Monitored Anesthesia Care Complications: No immediate complications. Estimated blood loss: Minimal. Estimated Blood Loss: Estimated blood loss was minimal. Procedure: Pre-Anesthesia Assessment: - - Prior to the procedure, a History and Physical was performed, and patient medications and allergies were reviewed. The patient is competent. The risks and benefits of the procedure and the sedation options and risks were discussed with the patient. All questions were answered and informed consent was obtained. Patient identification and proposed procedure were verified by the physician, the nurse, the anesthesiologist, the back hoe machine operator and the claim technician in the pre-procedure area in the endoscopy suite. Mental Status Examination: alert and oriented. Airway Examination: normal oropharyngeal airway and neck mobility. Respiratory Examination: clear to auscultation. CV Examination: normal. Prophylactic Antibiotics: The patient does not require prophylactic antibiotics. Prior Anticoagulants: The patient has taken no anticoagulant or antiplatelet agents. ASA Grade Assessment: II - A patient with mild systemic disease. After reviewing the risks and benefits, the patient was deemed in satisfactory condition to undergo the procedure. The anesthesia plan was to use monitored anesthesia care (MAC). Immediately prior to administration of medications, the patient was re-assessed for adequacy to receive sedatives. The heart rate, respiratory rate, oxygen saturations, blood pressure, adequacy of pulmonary ventilation, and response to care were monitored throughout the procedure. The physical status of the patient was re-assessed after the procedure. After I obtained informed consent, the scope was passed under direct vision. Throughout the procedure, the patient's blood pressure, pulse, and oxygen saturations were monitored continuously. The Colonoscope was introduced through the anus and advanced to the cecum, identified by appendiceal orifice and ileocecal valve. The colonoscopy was performed without difficulty. The patient tolerated the procedure well. The quality of the bowel preparation was good. Findings: Hemorrhoids were found on perianal exam. A 6 mm polyp was found in the ascending colon. The polyp was sessile. The polyp was removed with a cold snare. Resection and retrieval were complete. Estimated blood loss was minimal. The exam was otherwise without abnormality on direct and retroflexion views. Procedure Code(s): --- Professional --- 12919, Colonoscopy, flexible; with removal of tumor(s), polyp(s), or other lesion(s) by snare technique Diagnosis Code(s): --- Professional --- K64.9, Unspecified hemorrhoids D12.2, Benign neoplasm of ascending colon R19.5, Other fecal abnormalities CPT copyright 2020 [employer]. All rights reserved. The codes documented in this report are preliminary and upon business information analyst review may be revised to meet current compliance requirements. JACQUELINE Patel DO 06/25/2025 3:15:27 PM This report has been signed electronically.Jacqueline Patel DO Number of Addenda: 0 Note Initiated On: 06/25/2025 2:45 PM Scope Withdrawal Time: 0 hours 8 minutes 33 seconds Scope In: 3:00:14 PM Scope Out: 3:12:38 PM Endoscopy Department at [facility] - [address] [place] [phone] Procedure Note Jacqueline Patel DO - 06/25/2025 [facility] GI Patient Name: Joshua Kirby Procedure Date: 06/25/2025 2:45 PM Date of : 1945 Age: 79 Gender: Male Note Status: Finalized Attending MD: Jacqueline Patel DO, [id number] Procedure Date No Time: 06/25/2025 Procedure: Colonoscopy Indications: Positive Cologuard test Providers: Jacqueline Patel DO Referring MD: Margarito Robbins PA-C Medicines: Monitored Anesthesia Care Complications: No immediate complications. Estimated blood loss: Minimal. Estimated Blood Loss: Estimated blood loss was minimal. Procedure: Pre-Anesthesia Assessment: - - Prior to the procedure, a History and Physicalwas performed, and patient medications and allergieswere reviewed. The patient is competent. The risks and benefits of the procedure and the sedation optionsand risks were discussed with the patient. Allquestions were answered and informed consent was obtained. Patient identification and proposed procedure were verified by the physician, the nurse, the anesthesiologist, the back hoe machine operator and thetechnician in the pre-procedure area in the endoscopy suite. Mental Status Examination: alert and oriented.Airway Examination: normal oropharyngeal airway and neck mobility. Respiratory Examination: clear to auscultation. CV Examination: normal. Prophylactic Antibiotics: The patient does not requireprophylactic antibiotics. Prior Anticoagulants: The patient has taken no anticoagulant or antiplatelet agents. ASA Grade Assessment: II - A patient with mild systemic disease. After reviewing the risks and benefits,the patient was deemed in satisfactory condition to undergo the procedure. The anesthesia plan was touse monitored anesthesia care (MAC). Immediately priorto administration of medications, the patient was re-assessed for adequacy to receive sedatives. The heart rate, respiratory rate, oxygen saturations, blood pressure, adequacy of pulmonary ventilation,and response to care were monitored throughout the procedure. The physical status of the patient was re-assessed after the procedure. After I obtained informed consent, the scope was passed under direct vision. Throughout theprocedure, the patient's blood pressure, pulse, and oxygen saturations were monitored continuously. The Colonoscope was introduced through the anus and advanced to the cecum, identified by appendiceal orifice and ileocecal valve. The colonoscopy was performed without difficulty. The patient tolerated the procedure well. The quality of the bowel preparation was good. Findings: Hemorrhoids were found on perianal exam. A 6 mm polyp was found in the ascending colon. The polyp was sessile. The polyp was removed with acold snare. Resection and retrieval were complete. Estimated blood loss was minimal. The exam was otherwise without abnormality ondirect and retroflexion views. Procedure Code(s): --- Professional --- 56592, Colonoscopy, flexible; with removal of tumor(s), polyp(s), or other lesion(s) by snare technique Diagnosis Code(s): --- Professional --- K64.9, Unspecified hemorrhoids D12.2, Benign neoplasm of ascending colon R19.5, Other fecal abnormalities CPT copyright 2020 [employer]. All rights reserved. The codes documented in this report are preliminary and upon business information analyst reviewmay be revised to meet current compliance requirements. JACQUELINE Patel DO 06/25/2025 3:15:27 PM This report has been signed electronically.Jacqueline Patel DO Number of Addenda: 0 Note Initiated On: 06/25/2025 2:45 PM Scope Withdrawal Time: 0 hours 8 minutes 33 seconds Scope In: 3:00:14 PM Scope Out: 3:12:38 PM Endoscopy Department at [facility] - [address] [place] [phone] IMPRESSION: - Hemorrhoids found on perianal exam. - One 6 mm polyp in the ascending colon, removedwith a cold snare. Resected and retrieved. - The examination was otherwise normal on directand retroflexion views. Recommendation: - Discharge patient to home. - High fiber diet. - Continue present medications. - Await pathology results. - Repeat colonoscopy for surveillance based on pathology results. Jacqueline Patel DO GI~PROCEDURE ORDERABLES Final Re sult * Tissue exam (06/25/2025 3:08 PM EDT) Final Diagnosis Ascending colon polyp: Benign colonic mucosa No adenomatous or hyperplastic change identified on deeper levels 06/27/2025 9:17 AM EDT [facility] Gross Description A. Large Intestine, Right/Ascending Colon, polyp: Labeled polyp in ascend colon . Received in formalin are three soft, robins to pink polypoid tissues ranging from 0.15 cm to 0.3 cm in greatest diameter, which are wrapped in paper and submitted in toto in one cassette, three pieces multiple levels. TS 06/27/2025 9:17 AM EDT [facility] Disclaimer Unless otherwise specified, all tissue is 10% NB formalin fixed and paraffin embedded. 06/27/2025 9:17 AM T [facility] Tissue Ascending colon structure / Unknown 06/25/2025 3:08 PM EDT 06/25/2025 3:36 PM EDT us Jacqueline Patel DO LAB PATHOLOGY ORDERABLES Final R esult [facility] [address] [place] [address], [place] [phone] * Basic metabolic panel (05/04/2025 11:07 AM EDT) Sodium 138 133 - 145 mmol/L LAB CHEMISTRY METHOD 05/04/2025 3:44 PM T [facility] Potassium 4.1 3.5 - 5.5 mmol/L LAB CHEMISTRY METHOD 05/04/2025 3:44 PM [facility] Chloride 106 96 - 110 mmol/L LAB CHEMISTRY METHOD 05/04/2025 3:44 PM [facility] CO2 28 21 - 32 mmol/L LAB CHEMISTRY METHOD 05/04/2025 3:44 PM [facility] Anion Gap 4 3 - 11 LAB CHEMISTRY METHOD 05/04/2025 3:44 PM [facility] Glucose 99 70 - 100 mg/dL LAB CHEMISTRY METHOD 05/04/2025 3:44 PM [facility] BUN 21 5 - 25 mg/dL LAB CHEMISTRY METHOD 05/04/2025 3:44 PM [facility] Creatinine 0.78 0.70 - 1.30 mg/dL LAB CHEMISTRY METHOD 05/04/2025 3:44 PM [facility] eGFR 92 >=60 mL/min/1. 73m2 LAB CHEMISTRY METHOD 05/04/2025 3:44 PM [facility] Comment:Calculation based on the Chronic Kidney Disease Epidemiology Collaboration (CKD-EPI) equation refit without adjustment for race. BUN/Creatinine Ratio 26.9 LAB CHEMISTRY METHOD 05/04/2025 3:44 PM [facility] Calcium 8.7 8.5 - 10.5 mg/dL LAB CHEMISTRY METHOD 05/04/2025 3:44 PM EDT [facility] Blood Venous blood specimen / Unknown Venipuncture / Unknown 05/04/2025 11:07 AM EDT 05/04/2025 11:07 AM EDT Taryn Yoo MD LAB BLOOD ORDERABLES Final Resu lt [facility] [address] [place] [address], [place] [phone] * Lipid panel with reflex to direct LDL (03/09/2025 12:07 PM EDT) Cholesterol 154 0 - 200 mg/dL LAB CHEMISTRY METHOD 03/09/2025 5:16 PM EDT [facility] Triglycerides 111 0 - 150 mg/dL LAB CHEMISTRY METHOD 03/09/2025 5:16 PM EDT [facility] HDL 56 >=40 mg/dL LAB CHEMISTRY METHOD 03/09/2025 5:16 PM EDT [facility] LDL Calculated 76 0 - 100 mg/dL LAB CHEMISTRY METHOD 03/09/2025 5:16 PM EDT [facility] VLDL Cholesterol Jorge 22.2 mg/dL LAB CHEMISTRY METHOD 03/09/2025 5:16 PM EDT [facility] Non HDL Chol. (LDL+VLDL) 98 <145 mg/dL LAB CHEMISTRY METHOD 03/09/2025 5:16 PM EDT [facility] Chol/HDL Ratio 2.8 0.0 - 4.4 LAB CHEMISTRY METHOD 03/09/2025 5:16 PM EDT [facility] Blood Venous blood specimen / Unknown Venipuncture / Unknown 03/09/2025 12:07 PM EDT 03/09/2025 12:07 PM EDT Margarito PANDA LAB BLOOD ORDERABLES Bianca l Result [facility] [address] [place] [address], [place] [phone] * Depression Screening (08/25/2024) Depression Screening Abstracted Historical Provider HEALTH MAINTENANCE Final Result * Hepatitis C Screening (05/08/2014) Hepatitis C Screening Abstracted Historical Provider HEALTH MAINTENANCE Final Result from Last 3 Months or Most Recently Relevant to Health Maintenance Insurance MEDICARE [facility] Care Teams Card Tape Converter Operator Relationship Specialty Start Date End Date Margarito Robbins PA [address] [place] [address] PCP - General Internal Medicine 09/14/24
--- OUTSIDE RECORDS SUMMARY | 2025-07-18 12:22 | XMS_ITS ---
Author Name [facility] Organization Unknown Care Team Organization Name Specialty Phone Email Start Date End Da te [facility] ACO 07/11/2025 [facility] Margarito Robbins Primary Care 07/29/2023 [facility] Rosi Fofana Primary Care 09/29/2022
== END 2025-07-18 12:06 | disposition home or self-care (01) ==
LOC: HO.HSM 11:26
PROVIDERS: PCP Physician Assistant Medical; Referring Provider Physician Assistant Medical; Visit Provider Psychiatry & Neurology Neurology
DX: G61.81 Chronic inflammatory demyelinating polyneuritis (principal); G25.81 Restless legs syndrome
CPT/HCPCS: 99214

== ENCOUNTER → 2025-07-18 11:25 | Outpatient (BNVA) | payer MEDICARE, OTHER, SELFPAY | PROVIDERS: PCP Physician Assistant Medical; Referring Provider Physician Assistant Medical; Visit Provider Psychiatry & Neurology Neurology | DX: G61.81 Chronic inflammatory demyelinating polyneuritis (principal); G25.81 Restless legs syndrome | CPT/HCPCS: 99212 ==

== ENCOUNTER 2025-07-25 10:50 | Outpatient (REF) | payer MEDICARE, OTHER, SELFPAY ==
--- NOTE | 2025-07-25 10:52 | EMG_ITS ---
Referred by Dr. Macias cc: Margarito Robbins~ Reason: Right upper and Right lower polyneuropathy Procedure done: Right arm and Right leg for NCV/ EMG H/O: h/o aortic valve replacement and chronic inflammatory demyelinating polyradiculoneuropathy, and RLS. CIDP is treated with prednisone and ivIg every 3 months. He got worse with prednisone 2.5mg and was stable on higher dose. CIPD, Multiple motor neuropathy, peripheral edema. Pt c/o presenting with worsening leg weakness characterized by a decrease in leg strength, affecting balance and mobility over the past two to three months. There is noted nocturnal swelling of the left leg associated with brace wear, resolving by morning. The patient has been on a maintenance dose of 7.5 mg prednisone since April due to past unsuccessful tapering attempts that exacerbated his leg weakness, significantly impacting his walking ability. Prednisone dose reductions to 5 mg and 2.5 mg in the past led to severe mobility issues. IVIG treatments generally contribute to mild improvement in ambulation; however, the last treatment did not afford the usual benefit. The patient also experiences difficulty ambulating due to a disintegrating bone in the left foot, further complicating the clinical picture. Description: Right median and ulnar motor and sensory studies were performed right tibial and peroneal motor studies were performed her right median and lateral antecubital brachial and radial sensory studies were performed right superficial peroneal and sural sensory studies were performed tibial H-reflex was obtained an EMG needle examination was performed for both limbs. Impression: Ozvrmaqi-xs-secard axonal sensory motor chronic peripheral neuropathy MTDD
--- OUTSIDE RECORDS SUMMARY | 2025-07-25 12:50 | XMS_ITS | Clinical Summary ---
Author Organization [address] [facility] Address [address] [place] [address] Phone Care Team Providers Care International Student Advisor Name Role Phone Margarito Robbins Primary Care Provider [phone] Allergies No known active allergies Medications mirabegron [...] Problem Noted Date Diagnosed Date Cardiomyopathy, nonischemic ([facility] V24, [facility] V28) 04/04/2025 [facility] (current) use of anticoagulants 2023 Personal history [...] for this purpose DVT (deep venous thrombosis) ([facility] V24, [facility] V28) 09/28/2017 Left foot drop 02/10/2017 CIDP (chronic inflammatory d emyelinating polyneuropathy) ([facility] V24, [facility] V28) 01/30/2017 Overview (08/29/2024): receiving IVIG from [...] Anticoagulation - Warfarin Visit [facility] Clinic - [address] [phone] [facility] (current) use of anticoagulants (Primary Dx); Personal history of DVT (deep vein thrombosis) 06/25/2025 2:53 PM EDT Anesthesia Event [facility] Endoscopy [address] [place] [phone] Beau Vuong DO 06/25/2025 1:35 PM EDT - 06/25/2025 11:59 PM EDT Hospital Encounter [facility]oscopy [address] [place] [address] Jacqueline Patel DO Couture, Alison, CRNA Korobkov, Vitaliy, DO Positive colorectal cancer screening using Cologuard test Discharge Disposition: Home or Self Care 06/18/2025 Telephone Gastroenterology - [place] [address] [facility] [address] [phone] Jacqueline Patel DO 06/11/2025 Telephone Gastroenterology - [place] [address] [phone] Fernanda Esparza LPN 06/11/2025 Telephone Gastroenterology - [place] [address] [phone] Stephanie Mayers MD 06/01/2025 11:00 AM EDT Anticoagulation - Warfarin Visit Coumadin [facility] - [address] [phone] [facility] (current) use of anticoagulants (Primary Dx); Personal history of DVT (deep vein thrombosis) 05/15/2025 2:40 PM EDT Office Visit Gastroenterology - [place] [address] [phone] Beckie Tan NP Positive colorectal cancer screening using Cologuard test (Primary Dx); Hematochezia; Constipation, unspecified constipation type 05/04/2025 11:00 AM EDT Anticoagulation - Warfarin Visit Coumadin [address] [phone] [facility] (current) use of anticoagulants (Primary Dx); Personal [...] Anemia DX:Anemia CIDP (chronic inflammatory demyelinating polyneuropathy) ([facility] V24, [facility] V28) Foot drop, left foot Family History [...] care for your loved ones. For example, attendant children's institution or elderly care for an older adult? [...] AM EDT Anticoagulation - Warfarin Visit Coumadin [facility] - [address] [phone] 08/29/2025 12:45 PM EDT Office Visit Adult Medicine [address] [phone] Margarito Robbins PA [address] [place] [phone] 09/25/2025 11:00 AM EST Ancillary Procedure [facility] [address] [place] [address] 10/12/2025 9:10 AM EST Office Visit [facility] [address] [place] [address] Cheko Matthew NP [address] [place] [address] Dr [address] [place] [address] Health Maintenance Due Date Last Done Comments [...] Comments POC PROTIME INR BLOOD Routine 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 Personal history of DVT (deep vein thrombosis) COLONOSCOPY Routine 06/25/2025 3:13 PM EDT Positive colorectal cancer screening using Cologuard test TISSUE EXAM Routine 06/25/2025 3:08 PM EDT Positive colorectal cancer screening using Cologuard test POC PROTIME INR BLOOD Routine 06/01/2025 [facility] (current) use of anticoagulants Personal history of DVT (deep vein thrombosis) BASIC METABOLIC PANEL Routine 05/04/2025 11:07 AM EDT Hypertension, unspecified type POC PROTIME INR BLOOD Routine 05/04/2025 [facility] (current) use of anticoagulants Personal history of [...] Final Result * COLONOSCOPY Anesthesia - MAC; [facility] ENDOSCOPY (06/25/2025 3:13 PM EDT) Anatomical Region [...] pathology results. Narrative 06/25/2025 3:[address] [facility] GI Patient Name: Joshua Kirby Procedure Date: 06/25/2025 2:45 PM Date of : 1945 Age: 79 Gender: Male Note Status: Finalized Attending MD: Jacqueline Patel DO, [id number] Procedure Date No Time: 06/25/2025 Procedure: Colonoscopy [...] the physician, the nurse, the anesthesiologist, the bender machine and the auto body repair technician in the pre-procedure area in the [...] retroflexion views. Procedure Code(s): --- Professional --- 09724, Colonoscopy, flexible; with removal of tumor(s), polyp(s), or other lesion(s) by snare technique Diagnosis Code(s): --- Professional --- K64.9, Unspecified hemorrhoids D12.2, Benign neoplasm of ascending colon R19.5, Other fecal abnormalities CPT copyright 2020 [employer] [place] [employer]. All rights reserved. The codes documented in this report are preliminary and upon retail administrative assistant review may be revised to meet current compliance requirements. JACQUELINE Patel DO 06/25/2025 3:15:27 PM This report has been signed electronically.Jacqueline Patel DO Number of Addenda: 0 Note Initiated On: 06/25/2025 2:45 PM Scope Withdrawal Time: 0 hours 8 minutes 33 seconds Scope In: 3:00:14 PM Scope Out: 3:12:38 PM Endoscopy Department at [facility] - [address] [place] [phone] Procedure Note Jacqueline Patel DO - 06/25/2025 [facility] GI Patient Name: Joshua Kirby Procedure Date: 06/25/2025 2:45 PM Date of : 1945 Age: 79 Gender: Male Note Status: Finalized Attending MD: Jacqueline Patel DO, [id number] Procedure Date No Time: 06/25/2025 Procedure: Colonoscopy [...] the physician, the nurse, the anesthesiologist, the bender machine and thetechnician in the pre-procedure area in [...] retroflexion views. Procedure Code(s): --- Professional --- 00076, Colonoscopy, flexible; with removal of tumor(s), polyp(s), or other lesion(s) by snare technique Diagnosis Code(s): --- Professional --- K64.9, Unspecified hemorrhoids D12.2, Benign neoplasm of ascending colon R19.5, Other fecal abnormalities CPT copyright 2020 [employer] [place] [employer]. All rights reserved. The codes documented in this report are preliminary and upon retail administrative assistant reviewmay be revised to meet current compliance requirements. JACQUELINE Patel DO 06/25/2025 3:15:27 PM This report has been signed electronically.Jacqueline Patel DO Number of Addenda: 0 Note Initiated On: 06/25/2025 2:45 PM Scope Withdrawal Time: 0 hours 8 minutes 33 seconds Scope In: 3:00:14 PM Scope Out: 3:12:38 PM Endoscopy Department at [facility] - [address] [place] [phone] IMPRESSION: - Hemorrhoids found on perianal exam. [...] on deeper levels 06/27/2025 9:17 AM EDT [facility] Gross Description A. Large Intestine, Right/Ascending Colon, polyp: Labeled polyp in ascend colon . Received in formalin are three soft, robins to pink polypoid tissues ranging from 0.15 cm to 0.3 cm in greatest diameter, which are wrapped in paper and submitted in toto in one cassette, three pieces multiple levels. TS 06/27/2025 9:17 AM EDT [facility] Disclaimer Unless otherwise specified, all tissue is 10% NB formalin fixed and paraffin embedded. 06/27/2025 9:17 AM T [facility] Tissue Ascending colon structure / Unknown 06/25/2025 3:08 PM EDT 06/25/2025 3:36 PM EDT us Jacqueline Patel DO LAB PATHOLOGY ORDERABLES Final R esult [facility] [address] [place] [address], [place] [phone] * Basic metabolic panel (05/04/2025 11:07 AM EDT) Sodium 138 133 - 145 mmol/L LAB CHEMISTRY METHOD 05/04/2025 3:44 PM T [facility] Potassium 4.1 3.5 - 5.5 mmol/L LAB CHEMISTRY METHOD 05/04/2025 3:44 PM [facility] Chloride 106 96 - 110 mmol/L LAB CHEMISTRY METHOD 05/04/2025 3:44 PM [facility] CO2 28 21 - 32 mmol/L LAB CHEMISTRY METHOD 05/04/2025 3:44 PM [facility] Anion Gap 4 3 - 11 LAB CHEMISTRY METHOD 05/04/2025 3:44 PM [facility] Glucose 99 70 - 100 mg/dL LAB CHEMISTRY METHOD 05/04/2025 3:44 PM [facility] BUN 21 5 - 25 mg/dL LAB CHEMISTRY METHOD 05/04/2025 3:44 PM [facility] Creatinine 0.78 0.70 - 1.30 mg/dL LAB CHEMISTRY METHOD 05/04/2025 3:44 PM [facility] eGFR 92 >=60 mL/min/1. 73m2 LAB CHEMISTRY METHOD 05/04/2025 3:44 PM [facility] Comment:Calculation based on the Chronic Kidney Disease Epidemiology Collaboration (CKD-EPI) equation refit without adjustment for race. BUN/Creatinine Ratio 26.9 LAB CHEMISTRY METHOD 05/04/2025 3:44 PM [facility] Calcium 8.7 8.5 - 10.5 mg/dL LAB CHEMISTRY METHOD 05/04/2025 3:44 PM EDT [facility] Blood Venous blood specimen / Unknown Venipuncture / Unknown 05/04/2025 11:07 AM EDT 05/04/2025 11:07 AM EDT Taryn Yoo MD LAB BLOOD ORDERABLES Final Resu lt [facility] [address] [place] [address], [place] [phone] * Lipid panel with reflex to direct LDL (03/09/2025 12:07 PM EDT) Cholesterol 154 0 - 200 mg/dL LAB CHEMISTRY METHOD 03/09/2025 5:16 PM EDT [facility] Triglycerides 111 0 - 150 mg/dL LAB CHEMISTRY METHOD 03/09/2025 5:16 PM EDT [facility] HDL 56 >=40 mg/dL LAB CHEMISTRY METHOD 03/09/2025 5:16 PM EDT [facility] LDL Calculated 76 0 - 100 mg/dL LAB CHEMISTRY METHOD 03/09/2025 5:16 PM EDT [facility] VLDL Cholesterol Jorge 22.2 mg/dL LAB CHEMISTRY METHOD 03/09/2025 5:16 PM EDT [facility] Non HDL Chol. (LDL+VLDL) 98 <145 mg/dL LAB CHEMISTRY METHOD 03/09/2025 5:16 PM EDT [facility] Chol/HDL Ratio 2.8 0.0 - 4.4 LAB CHEMISTRY METHOD 03/09/2025 5:16 PM EDT [facility] Blood Venous blood specimen / Unknown Venipuncture / Unknown 03/09/2025 12:07 PM EDT 03/09/2025 12:07 PM EDT Margarito PANDA LAB BLOOD ORDERABLES Bianca l Result [facility] [address] [place] [address], [place] [phone] * Depression Screening (08/25/2024) Depression Screening Abstracted Historical Provider HEALTH MAINTENANCE Final Result * Hepatitis C Screening (05/08/2014) Hepatitis C Screening Abstracted Historical Provider HEALTH MAINTENANCE Final Result from Last 3 Months or Most Recently Relevant to Health Maintenance Insurance MEDICARE [facility] Care Teams International Student Advisor Relationship Specialty Start Date End Date Margarito Robbins PA [address] [place] [address] PCP - General Internal Medicine 09/14/24
== END 2025-07-25 10:51 | disposition home or self-care (01) ==
LOC: HO.NEURO 10:50
PROVIDERS: PCP Physician Assistant Medical; Visit Provider Psychiatry & Neurology Neurology
DX: G61.81 Chronic inflammatory demyelinating polyneuritis (principal)
CPT/HCPCS: 95886; 95913

== ENCOUNTER → 2025-07-25 10:52 | Outpatient (BNV) | payer MEDICARE, OTHER, SELFPAY | PROVIDERS: PCP Physician Assistant Medical; Visit Provider Psychiatry & Neurology Neurology | DX: G62.89 Other specified polyneuropathies (principal) | CPT/HCPCS: 95886; 95912 ==

== ENCOUNTER 2025-08-06 11:59 | Outpatient (AMB) | payer MEDICARE, OTHER, SELFPAY ==
--- NOTE | 2025-08-06 12:19 | MHC.OFFVIS ---
Intake Visit Reasons: RESULTS Allergies No Known Allergies (No Known Allergies*) Allergy (Unverified 08/08/20 19:11) HPI Comments Details: The patient is a 79-year-old male presenting with worsening neuropathic symptoms. He has Chronic Inflammatory Demyelinating Polyneuropathy (CIDP), showing progression since a study six years ago. Initially affecting motor nerves, the condition now involves both sensory and motor nerves, with a significant decline in motor function and sensory involvement now evident. The patient reports increased weakness, fatigue, and walking difficulty. Historically, his symptoms showed initial motor nerve involvement, with sensory nerves unaffected, but have now progressed significantly. The patient's condition on a severity scale has worsened from a score of 5-6 to 8-9. After IVIG treatment, improvements are noted around three weeks post-infusion, sustaining for about six weeks before symptoms regress. The treatment plan includes IVIG and Prednisone, maintained due to the patient's good tolerance despite Prednisone-related bruising with minor trauma. Alternative treatment strategies were considered; however, they carry substantial risk, and current therapies were determined to provide a balanced management without compromising additional organ systems. 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 - Dermatological: Reports bruising with minimal trauma. - Musculoskeletal: Reports leg weakness. Physical Exam Neuro Other: Alert and awake with normal spontaneity of speech fluency comprehension and flat affect. Slow very cautious gait with a walker. Assessment & Plan Assessment & Plan (1) CIDP (chronic inflammatory demyelinating polyneuropathy): Comment: EMG/NCS at [facility] in Jul 2025: Mod to severe axonal SM PN CSF analysis at [facility] in Nov 2016: OP: 6.5cm, RBCs 9275, WBCs 9, 46% L, 42% N, Glu 48, Pro 129.3, IgG ind: ok, OCBs >5 bands also in serum but some are more pronounced in CSF Labs at [facility] in Sep 2016: LORI ok, Lyme ok, IF ok, Sed rate 60. 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 XR ankle at in Jul 2016: mild DJD MRI LS spine at [facility] in Nov 2016: mod DJD, mod anterolisthesis S1/L5. Code(s): G61.81 - Chronic inflammatory demyelinating polyneuritis Category: Medical (2) RLS (restless legs syndrome): Code(s): G25.81 - Restless legs syndrome Category: Medical Plan Impression: a: CIDP b: Multifactorial gait disorder (neuropathy, obesity, left foot osteopathy) c: RLS Rec: a: Prednisone 2.5mg, 3 a day b: IVIg 40g for 5 days in Jul. c: Regular use of walker d: May consider monthly IVIg During the consultation, I discussed the patient's ongoing management for CIDP, notably the increase in neuropathic symptomatology, with particular attention to motor and sensory nerves. The patient will undergo a trial of monthly IVIG therapy for three cycles to ascertain potential benefits of increased infusion frequency. Prednisone therapy will be maintained while monitoring for side effects, such as bruising. We deliberated comprehensive management options, weighing risks of new biological treatments. I recommended maintaining the current regimen due to tolerable side effects and quality of life considerations. A follow-up is scheduled for further evaluation, to guide potential adjustments in therapy, focusing on symptom control and monitoring of renal function due to IVIG. Coding Level of Care Code Est Pt Level 4 (56645) Diagnoses CIDP (chronic inflammatory demyelinating polyneuropathy) G61.81 RLS (restless legs syndrome) G25.81
--- OUTSIDE RECORDS SUMMARY | 2025-08-06 16:40 | XMS_ITS | Clinical Summary ---
Author Organization 175 [facility] Address [address] [place] [address] Phone Care Team Providers Care Brazer Helper Induction Name Role Phone Margarito Robbins Primary Care Provider [phone] Allergies No known active allergies Medications mirabegron [...] Problem Noted Date Diagnosed Date Cardiomyopathy, nonischemic ([facility] V24, [facility]/ [facility] V28) 04/04/2025 longterm (current) use of anticoagulants 2023 Personal history [...] for this purpose DVT (deep venous thrombosis) ([facility] V24, [facility]/ [facility] V28) 09/28/2017 Left foot drop 02/10/2017 CIDP (chronic inflammatory d emyelinating polyneuropathy) ([facility] V24, [facility] V28) 01/30/2017 Overview (08/29/2024): receiving IVIG from [...] Encounters Date Type Department Care Team Description 07/30/2025 11:00 AM EDT Anticoagulation - Warfarin Visit [facility] - [address] [phone] histologist (current) use of anticoagulants (Primary Dx); Personal history of DVT (deep vein thrombosis) 07/02/2025 11:00 AM EDT [facility] - [facility] [address] [phone] histologist (current) use of anticoagulants (Primary Dx); Personal history of DVT (deep vein thrombosis) 06/25/2025 2:53 PM EDT Anesthesia Event [facility] [address] [place] [address] Beau Vuong DO 06/25/2025 1:35 PM EDT - 06/25/2025 11:59 PM EDT Hospital Encounter [facility] [address] [place] [address] Jacqueline Patel DO Couture, Alison, CRNA Korobkov, Vitaliy, DO Positive colorectal cancer screening using Cologuard test Discharge Disposition: Home or Self Care 06/18/2025 Telephone Gastroenterology - [place] [address] [phone] Jacqueline Patel DO 06/11/2025 Telephone Gastroenterology [facility] [address] [facility] [address] [phone] Fernanda Esparza LPN 06/11/2025 Telephone Gastroenterology [facility] [address] [facility] [address] [phone] Stephanie Mayers MD 06/01/2025 11:00 AM EDT [facility] - [facility] [address] [phone] longterm (current) use of anticoagulants (Primary Dx); Personal history of DVT (deep vein thrombosis) 05/15/2025 2:40 PM EDT Office Visit Gastroenterology - [place] [address] [place] [address] Beckie Tan, MALIK Positive colorectal cancer screening using Cologuard test (Primary Dx); Hematochezia; Constipation, unspecified constipation type from Last 3 Months Immunizations Name Administration [...] Anemia DX:Anemia CIDP (chronic inflammatory demyelinating polyneuropathy) ([facility] V24, [facility] V28) Foot drop, left foot Family History [...] care for your loved ones. For example, child care worker or elderly care for an older [...] Department Care Team (Latest Contact Info) Description 08/27/2025 11:00 AM EDT Anticoagulation - Warfarin Visit Coumadin [facility] - [address] [phone] 08/29/2025 12:45 PM EDT Office Visit Adult Medicine [address] [phone] Margarito Robbins PA [address] [place] [phone] 09/25/2025 11:00 AM EST Ancillary Procedure [facility] Cardiology [facility] [address] [facility] [address] [place] [phone] 10/12/2025 9:10 AM EST Office Visit [facility] Cardiology [facility] [address] [place] [address] Cheko Matthew NP [address] [place] [address] [address] [place] [address] Health Maintenance Due Date Last Done Comments [...] Diagnosis Comments POC PROTIME INR BLOOD Routine 07/30/2025 longterm (current) use of anticoagulants Personal history of DVT (deep vein thrombosis) POC PROTIME INR BLOOD Routine 07/02/2025 longterm (current) use of anticoagulants Personal history of DVT (deep vein thrombosis) COLONOSCOPY Routine 06/25/2025 3:13 PM EDT Positive colorectal cancer screening using Cologuard test TISSUE EXAM Routine 06/25/2025 3:08 PM EDT Positive colorectal cancer screening using Cologuard test POC PROTIME INR BLOOD Routine 06/01/2025 histologist (current) use of anticoagulants Personal history of DVT (deep vein thrombosis) BASIC METABOLIC PANEL Routine 05/04/2025 11:07 AM EDT Hypertension, unspecified type LIPID PANEL WITH REFLEX TO DIRECT LDL [...] Maintenance Results * POC Protime INR Blood (07/30/2025) Only the most recent of3 resultswithin the time period is included. Lot Number INR POC 2.4 Prothrombin Time POC Exp Date Blood 07/30/2025 Margarito PANAD POINT OF CARE TEST ENTER/ EDIT ORDERABLES Final Result * COLONOSCOPY Anesthesia - MAC; [facility] ENDOSCOPY (06/25/2025 3:13 PM EDT) [...] pathology results. Narrative 06/25/2025 3:15 PM EDT [facility] GI Patient Name: Joshua Kirby Procedure Date: 06/25/2025 2:45 PM Date of : 1945 Age: 79 Gender: Male Note Status: Finalized Attending MD: Jacqueline Patel DO, [id number] Procedure Date No Time: 06/25/2025 Procedure: Colonoscopy [...] the physician, the nurse, the anesthesiologist, the fundraising consultant and the liquified natural gas technician in the pre-procedure area in the [...] retroflexion views. Procedure Code(s): --- Professional --- 72566, Colonoscopy, flexible; with removal of tumor(s), polyp(s), or other lesion(s) by snare technique Diagnosis Code(s): --- Professional --- K64.9, Unspecified hemorrhoids D12.2, Benign neoplasm of ascending colon R19.5, Other fecal abnormalities CPT copyright 2020 [employer]. All rights reserved. The codes documented in this report are preliminary and upon solar resource assessor review may be revised to meet current compliance requirements. JACQUELINE Patel DO 06/25/2025 3:15:27 PM This report has been signed electronically.Jacqueline Patel DO Number of Addenda: 0 Note Initiated On: 06/25/2025 2:45 PM Scope Withdrawal Time: 0 hours 8 minutes 33 seconds Scope In: 3:00:14 PM Scope Out: 3:12:38 PM Endoscopy Department at [facility] - [address] [place] [phone] Procedure Note Jacqueline Patel DO - 06/25/2025 [facility] GI Patient Name: Joshua Kirby Procedure Date: 06/25/2025 2:45 PM Date of : 1945 Age: 79 Gender: Male Note Status: Finalized Attending MD: Jacqueline Patel DO, [id number] Procedure Date No Time: 06/25/2025 Procedure: Colonoscopy [...] the physician, the nurse, the anesthesiologist, the fundraising consultant and thetechnician in the pre-procedure area in [...] retroflexion views. Procedure Code(s): --- Professional --- 53842, Colonoscopy, flexible; with removal of tumor(s), polyp(s), or other lesion(s) by snare technique Diagnosis Code(s): --- Professional --- K64.9, Unspecified hemorrhoids D12.2, Benign neoplasm of ascending colon R19.5, Other fecal abnormalities CPT copyright 2020 [employer]. All rights reserved. The codes documented in this report are preliminary and upon solar resource assessor reviewmay be revised to meet current compliance requirements. JACQUELINE Patel DO 06/25/2025 3:15:27 PM This report has been signed electronically.Jacqueline Patel DO Number of Addenda: 0 Note Initiated On: 06/25/2025 2:45 PM Scope Withdrawal Time: 0 hours 8 minutes 33 seconds Scope In: 3:00:14 PM Scope Out: 3:12:38 PM Endoscopy Department at [facility] - [address] [place] [phone] IMPRESSION: - Hemorrhoids found on perianal exam. [...] identified on deeper levels 06/27/2025 9:17 AM T [facility] Gross Description A. Large Intestine, Right/Ascending Colon, polyp: Labeled polyp in ascend colon . Received in formalin are three soft, robins to pink polypoid tissues ranging from 0.15 cm to 0.3 cm in greatest diameter, which are wrapped in paper and submitted in toto in one cassette, three pieces multiple levels. TS 06/27/2025 9:17 AM [facility] Disclaimer Unless otherwise specified, all tissue is 10% NB formalin fixed and paraffin embedded. 06/27/2025 9:17 AM T [facility] Tissue Ascending colon structure / Unknown 06/25/2025 3:08 PM EDT 06/25/2025 3:36 PM EDT Jacqueline Patel DO LAB PATHOLOGY ORDERABLES Final R esult [facility] [address] [place] [address], * Basic metabolic panel (05/04/2025 11:07 AM EDT) Sodium 138 133 - 145 mmol/L LAB CHEMISTRY METHOD 05/04/2025 3:44 PM [facility] Potassium 4.1 3.5 - 5.5 mmol/L LAB CHEMISTRY METHOD 05/04/2025 3:44 PM [facility] Chloride 106 96 - 110 mmol/L LAB CHEMISTRY METHOD 05/04/2025 3:44 PM [facility] CO2 28 21 - 32 mmol/L LAB CHEMISTRY METHOD 05/04/2025 3:44 PM [facility] Anion Gap 4 3 - 11 LAB CHEMISTRY METHOD 05/04/2025 3:44 PM [facility] Glucose 99 70 - 100 mg/dL LAB CHEMISTRY METHOD 05/04/2025 3:44 PM [facility] BUN 21 5 - 25 mg/dL LAB CHEMISTRY METHOD 05/04/2025 3:44 PM T [facility] Creatinine 0.78 0.70 - 1.30 mg/dL LAB CHEMISTRY METHOD 05/04/2025 3:44 PM [facility] eGFR 92 >=60 mL/min/1. 73m2 LAB CHEMISTRY METHOD 05/04/2025 3:44 PM [facility] Comment:Calculation based on the Chronic Kidney Disease Epidemiology Collaboration (CKD-EPI) equation refit without adjustment for race. BUN/Creatinine Ratio 26.9 LAB CHEMISTRY METHOD 05/04/2025 3:44 PM EDT [facility] Calcium 8.7 8.5 - 10.5 mg/dL LAB CHEMISTRY METHOD 05/04/2025 3:44 PM EDT [facility] Blood Venous blood specimen / Unknown Venipuncture / Unknown 05/04/2025 11:07 AM EDT 05/04/2025 11:07 AM EDT us Taryn Yoo MD LAB BLOOD ORDERABLES Final Resu lt [facility] [address] [place] [address], * Lipid panel with reflex to direct LDL (03/09/2025 12:07 PM EDT) Cholesterol 154 0 - 200 mg/dL LAB CHEMISTRY METHOD 03/09/2025 5:16 PM EDT [facility] Triglycerides 111 0 - 150 mg/dL LAB CHEMISTRY METHOD 03/09/2025 5:16 PM EDT [facility] HDL 56 >=40 mg/dL LAB CHEMISTRY METHOD 03/09/2025 5:16 PM T [facility] LDL Calculated 76 0 - 100 mg/dL LAB CHEMISTRY METHOD 03/09/2025 5:16 PM [facility] VLDL Cholesterol Jorge 22.2 mg/dL LAB CHEMISTRY METHOD 03/09/2025 5:16 PM T [facility] Non HDL Chol. (LDL+VLDL) 98 <145 mg/dL LAB CHEMISTRY METHOD 03/09/2025 5:16 PM EDT [facility] Chol/HDL Ratio 2.8 0.0 - 4.4 LAB CHEMISTRY METHOD 03/09/2025 5:16 PM [facility] Blood Venous blood specimen / Unknown Venipuncture / Unknown 03/09/2025 12:07 PM EDT 03/09/2025 12:07 PM EDT Margarito PANDA LAB BLOOD ORDERABLES Bianca l Result [facility] ([facility]) [facility] [address] [place] [address], [place] [phone] * Depression Screening (08/25/2024) Depression Screening Abstracted Historical Provider MD HEALTH MAINTENANCE Final Result * Hepatitis C Screening (05/08/2014) Hepatitis C Screening Abstracted Historical Provider HEALTH MAINTENANCE Final Result from Last 3 Months or Most Recently Relevant to Health Maintenance Insurance [facility]ICARE [facility] Care Teams Brazer Helper Induction Relationship Specialty Start Date End Date Margarito Robbins PA [address] [place] [address] PCP - General Internal Medicine 09/14/24
--- OUTSIDE RECORDS SUMMARY | 2025-08-06 16:40 | XMS_ITS | Patient Health Record ---
[facility] Address [address] [place] [address] Care Team Providers Care Stem Dryer Maintainer Name Role Phone Rj Benitez MD Primary Care Provider Anca Garcia Unavailable [phone] Reason For Referral No Information Medications Medication [...] Status W/U Status Risk Notes Problem Arthralgia (75703061) Arthralgia (719.40) Active confirmed Problem Disorder of joint of ankle and/or foot (426332258) Arthritis - Degenerative (719.97) Active confirmed Problem Pain in limb (50747969) Pain in Limb (729.5) Active confirmed Problem Acquired deformity of ankle AND/OR foot (18878396) Drop foot (736.79) Active confirmed Plan Of Treatment Pending Test Test Name Order Date [id number] NAIL, 1-08/29/2013 [id number] NAIL, -11/28/2013 Insurance Providers Payer Name Payer Address Payer Phone Subscriber Number Group Number Insured Name Patient Relationship to Insured Coverage Start Date Coverage End Date [facility] [address] [place] [address] [id number] Joshua Mackey Self - patient is the insured Medical (General) History Medical History History ICD Code hypertension
== END 2025-08-06 12:41 | disposition home or self-care (01) ==
LOC: HO.HSM 11:59
PROVIDERS: PCP Physician Assistant Medical; Visit Provider Psychiatry & Neurology Neurology
DX: G61.81 Chronic inflammatory demyelinating polyneuritis (principal); G25.81 Restless legs syndrome
CPT/HCPCS: 99214

== ENCOUNTER → 2025-08-06 11:59 | Outpatient (BNVA) | payer MEDICARE, OTHER, SELFPAY | PROVIDERS: PCP Physician Assistant Medical; Visit Provider Psychiatry & Neurology Neurology | DX: G25.81 Restless legs syndrome (principal); G61.81 Chronic inflammatory demyelinating polyneuritis; R53.1 Weakness; R53.83 Other fatigue; R26.89 Other abnormalities of gait and mobility | CPT/HCPCS: 99212 ==

== ENCOUNTER 2025-09-18 11:20 | Outpatient (AMB) | payer MEDICARE, OTHER, SELFPAY ==
--- NOTE | 2025-09-18 11:32 | A.OFFVIS_ITS ---
Intake Visit Reasons: LATE AUG PER [facility] Allergies No Known Allergies (No Known Allergies*) Allergy (Unverified 08/08/20 19:11) HPI Comments Details: 79-year-old male presenting with worsening neuropathic symptoms. He has Chronic Inflammatory Demyelinating Polyneuropathy (CIDP), showing progression since a study six years ago. Initially affecting motor nerves, the condition now involves both sensory and motor nerves, with a significant decline in motor fun ction and sensory involvement now evident. The patient reports increased weakness, fatigue, and walking difficulty. He is presenting with anemia and management concerns. Documentation over the past year and a half highlighted persistent anemia and efforts to determine etiology via a colonoscopy that did not reveal any gastrointestinal bleeds. Subsequent identification of hemorrhoids provided an explanation for periodic blood in stools and was treated, improving symptoms alongside dietary modifications to alleviate hard stools. The patient's symptoms expanded to increased weakness in the preceding weeks, compounding existing anemia management challenges. The erected plan revolves around maintaining current prednisone levels based on trials at lower doses that resulted in a worsening of symptoms and adopting quarterly IVIG infusions to address underlying conditions. 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 - Gastrointestinal: Reports hemorrhoids, periodic blood in stool, and history of hard stools. - Musculoskeletal: Reports increased weakness, particularly in lower extremities when dosage adjustments were made to prednisone. Physical Exam Neuro Other: Mental Status: Alert and oriented to person, place, and time. Normal attention. Normal spontaneous speech, fluency, and comprehension. Cranial Nerves: CN II: Visual hollis full to confrontation, visual acuity intact. CN III, IV, : Pupils equal, round, reactive to light and accommodation. Extraocular movements are normal. CN V: Facial sensation is normal. CN VII: Facial movements symmetrical. CN VIII: Hearing intact to bedside conversation is normal. CN IX, X: Palate elevates symmetrically. CN XI: Shoulder shrug and head turn symmetrical. CN XII: Tongue midline without atrophy or fasciculations. In wheelchair but able to get and walk slowly with a walker. Extrapyramidal: Full facial expressions and blinking. No rigidity. Movements are appropriate with no tremor or abnormality. Speech: Normal; no dysarthria or tremor. Assessment & Plan Assessment & Plan (1) CIDP (chronic inflammatory demyelinating polyneuropathy): Comment: EMG/NCS at [facility] in Jul 2025: Mod to severe axonal SM PN [place] [facility] [place]: OP: 6.5cm, RBCs 9275, WBCs 9, 46% L, 42% N, Glu 48, Pro 129.3, IgG ind: ok, OCBs >5 bands also in serum but some are more pronounced in CSF Labs at [facility] in Sep 2016: LORI ok, Lyme ok, IF ok, Sed rate 60. 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 XR ankle at in Jul 2016: mild DJD MRI LS spine at [facility] in Nov 2016: mod DJD, mod anterolisthesis S1/L5. Code(s): G6.81 - Chronic inflammatory demyelinating polyneuritis Category: Medical (2) RLS (restless legs syndrome): Code(s): G25.81 - Restless legs syndrome Category: Medical Plan Impression: a: CIDP b: Multifactorial gait disorder (neuropathy, obesity, left foot osteopathy) c: RLS Rec: a: Prednisone 2.5mg, 3 a day. Previously he got worse with 5mg a day and was stable on 7.5mg b: IVIg 40g for 5 days in Oct. c: Regular use of walker Orders: Referrals Infusion Center Notification G6.81 - Chronic inflammatory demyelinating polyneuritis Medications: Refilled prednisone 7.5 mg (3 x 2.5 mg) PO DAILY 270 tabs 0RF 90 days Coding Level of Care Code Est Pt Level 4 (18989) Diagnoses CIDP (chronic inflammatory demyelinating polyneuropathy) G6.81 RLS (restless legs syndrome) G25.81
== END 2025-09-18 11:50 | disposition home or self-care (01) ==
PROVIDERS: PCP Physician Assistant Medical; Visit Provider Psychiatry & Neurology Neurology
DX: G61.81 Chronic inflammatory demyelinating polyneuritis (principal); G25.81 Restless legs syndrome
CPT/HCPCS: 99214

== ENCOUNTER → 2025-09-18 11:20 | Outpatient (BNVA) | payer MEDICARE, OTHER, SELFPAY | PROVIDERS: PCP Physician Assistant Medical; Visit Provider Psychiatry & Neurology Neurology | DX: G61.81 Chronic inflammatory demyelinating polyneuritis (principal); G25.81 Restless legs syndrome | CPT/HCPCS: 99212 ==